=== PATIENT | female | born 1960 | race African-American/Black ===

== ENCOUNTER 2017-10-29 16:00 | Emergency (ER) | payer MEDICAID ==
[~2017-10-29] VITALS: Ht 165.1 cm; Wt 57.0 kg
[~2017-10-29 16:00] MED LIST: ASPI-1159 PO; [UNRECOGNIZED DRUG - OTHER]; [UNRECOGNIZED DRUG - OTHER] IV
[2017-10-29 16:12] VITALS: BP 111/62
== END 2017-10-29 18:40 | disposition left against medical advice (07) ==
LOC: ER 16:30
DX: R51 Headache (principal); Z53.21 Procedure and treatment not carried out due to patient leaving prior to being seen by health care provider

== ENCOUNTER 2019-03-28 09:21 | Emergency (ER) | payer MEDICAID ==
[~2019-03-28] VITALS: Ht 162.6 cm; Wt 69.0 kg
[2019-03-28 12:12] VITALS: BP 118/66
== END 2019-03-28 12:13 | disposition home or self-care (01) ==
LOC: ER 09:21
DX: M77.9 Enthesopathy, unspecified (principal); I10 Essential (primary) hypertension; I25.2 Old myocardial infarction; F17.210 Nicotine dependence, cigarettes, uncomplicated; F12.10 Cannabis abuse, uncomplicated; Z98.890 Other specified postprocedural states; Z79.82 Long term (current) use of aspirin
CPT/HCPCS: 99283